=== PATIENT | male | born 1945 | race Caucasian/White ===

== ENCOUNTER 2021-10-02 09:34 | Emergency (ER) | payer OTHER, MEDICARE ==
[2021-10-02] MEDS ORDERED: BEBTELOVIMAB (EUA) 175 MG/2 ML VIAL IVPUSH ONE (09:37)
[2021-10-02] MEDS ORDERED: SODIUM CHLORIDE 1,000 ML IV STA (09:37)
[2021-10-02 09:39] VITALS: BP 122/74; PULSE 80; TEMP 99.7; BMI 24.7
[2021-10-02 10:03] LABS: BASO % 0.6 % (0-2.0); EOS % 2.2 % (0-4.5); HEMOGLOBIN 14.8 GM/dL (11.7-16.9); LYMPH % 9.4 % (8-40); MCHC 34.4 g/dl (32.0-35.9); MEAN CELL VOLUME 95.9 fl (80-96); MONO % 16.3 % (3.8-10.2); NEUT % 71.5 % (42.8-82.8); PLATELET COUNT 201 10^3/uL (134-434); RBC 4.49 M/mm3 (4.00-5.60); RDW 13.6 % (11.9-15.9); WHITE BLOOD COUNT 4.4 K/mm3 (4.0-10.0)
[2021-10-02 10:22] LABS: ALBUMIN 3.6 g/dl (3.4-5.0); BLOOD UREA NITROGEN 11.1 mg/dL (7-18); CALCIUM 9.1 mg/dL (8.5-10.1)
[2021-10-02 10:25] LABS: CREATININE 0.9 mg/dL (0.55-1.3)
[2021-10-02 10:28] LABS: BILIRUBIN,TOTAL 0.5 mg/dL (0.2-1); TOT PROT 6.7 g/dl (6.4-8.2)
== END 2021-10-02 12:47 | disposition home or self-care (01) ==
LOC: JCOVINFU 09:34 → JER 09:34 → JCOVINFU 12:47
PROC: 3E03329 Introduction of Other Anti-infective into Peripheral Vein, Percutaneous Approach (ICD-10-PCS; principal; 2021-10-02)
PROC: 3E0337Z Introduction of Electrolytic and Water Balance Substance into Peripheral Vein, Percutaneous Approach (ICD-10-PCS; 2021-10-02)
DX: U07.1 COVID-19 (principal)
CPT/HCPCS: 36415; 71046-TC-FY; 80053; 85025; 99284-25